=== PATIENT | female | born 1975 | race Caucasian/White ===

== ENCOUNTER 2018-10-27 17:04 | Emergency (ER) | payer SELFPAY, BC ==
[2018-10-27] MEDS: IBUPROFEN 800 MG TAB PO (18:27)
[2018-10-27] MEDS: KETOROLAC 30 MG INJ IM (20:20)
== END 2018-10-27 20:32 | disposition home or self-care (01) ==
LOC: FTE 20:32
DX: R07.89 Other chest pain (principal); M79.602 Pain in left arm; M79.605 Pain in left leg; R93.0 Abnormal findings on diagnostic imaging of skull and head, not elsewhere classified
CPT/HCPCS: 70450; 71045; 73060; 73090; 73590; 81025; 96372; 99285-25